=== PATIENT | male | born 1995 | race Caucasian/White ===

== ENCOUNTER 2020-02-28 09:53 | Day surgery (SDC) | payer OTHER ==
[~2020-02-28 09:53] MED LIST: Dexamethasone 4 MG/ML 5 ML MDV ONE; HYDROmorphone 1 MG/ML Syringe ONE; Ketorolac 30 MG/ML SDV ONE; Lactated Ringers 1,000 ML IV SCH; Lactated Ringers 1,000 ML ONE; Lidocaine 1% 6 ML ONE; Lidocaine 1%/Sod Bicarbonate in NS 8.4% 1 ML Syringe IDERM PRN; Midazolam 1 MG/ML 2 ML SDV ONE; Ondansetron 4 MG/2 ML SDV ONE; Propofol 200 MG/20 ML SDV ONE; Rocuronium 50 MG/5 ML Vial ONE; Sodium Chloride 0.9% 10 ML Syringe FLUSH PRN; Succinylcholine/Sod PF 100 MG/5 ML SYRINGE IV ONE; ceFAZolin 1 GM Vial ONE; fentaNYL 250 MCG/5 ML SDV ONE
[2020-02-28] MEDS ORDERED: Vancomycin 2 GM in Sodium Chloride 0.9% 500 ML IV ONE (10:00)
--- NOTE | 2020-02-28 11:05 | PCM.PREANE ---
Preanesthetic Assessment - Procedure Proposed Procedure: Left knee video arthroscopy and left knee deep hardware removal - Anesthesia/Transfusion/Family Hx Anesthesia History: Prior Anesthesia Without Reaction Family History of Anesthesia Reaction: No Transfusion History: No Prior Transfusion(s) - Review of Systems General: No Symptoms Pulmonary: No Symptoms Cardiovascular: No Symptoms Gastrointestinal: No Symptoms Neurological: No Symptoms Other: Reports: None - Physical Assessment NPO Status Date: 02/27/20 NPO Status Time: 20:30 Height: 1.8 m Weight: 136 kg ASA Class: 2 Mental Status: Alert & Oriented x3 Airway Class: Mallampati = 2 Dentition: Reports: Normal Dentition Thyro-Mental Finger Breadths: 3 Mouth Opening Finger Breadths: 2 ROM/Head Extension: Full Lungs: Clear to Auscultation, Normal Respiratory Effort Cardiovascular: Regular Rate, Regular Rhythm - Lab Values: Laboratory Last Values COVID-19 PCR Not detected (NOT DETECT) 02/26/20 15:00 MRSA (PCR) Positive H 02/08/20 12:59 - Allergies Allergies/Adverse Reactions: Allergies Allergy/AdvReac Type Severity Reaction Status Date / Time Penicillins Allergy Cannot Verified 02/27/20 15:35 Remember - Blood Blood Available: No Product(s) Available: None - Anesthesia Plan Pre-Op Medication Ordered: None - Acknowledgements Anesthesia Type Planned: General Anesthesia Pt an Appropriate Candidate for the Planned Anesthesia: Yes Alternatives and Risks of Anesthesia Discussed w Pt/Guardian: Yes Pt/Guardian Understands and Agrees with Anesthesia Plan: Yes PreAnesthesia Questionnaire HEENT History: Reports: None Cardiovascular History: Reports: None Respiratory History: Reports: None, Other (See Below) (Snors at night) Gastrointestinal History: Reports: None, GERD (not often "depends on what I eat") Genitourinary History: Reports: None DESIGN COORDINATOR History: Reports: None Neurological History: Reports: None Psychiatric History: Reports: None Endocrine/Metabolic History: Reports: None Hematologic History: Reports: None Immunologic History: Reports: None Oncologic (Cancer) History: Reports: None Dermatologic History: Reports: None - Past Surgical History HEENT Surgical History: Reports: None Cardiovascular Surgical History: Reports: None Respiratory Surgical History: Reports: None GI Surgical History: Reports: Appendectomy Female Surgical History: Reports: None Male Surgical History: Reports: None Endocrine Surgical History: Reports: None Neurological Surgical History: Reports: None Musculoskeletal Surgical History: Reports: Arthroscopic Knee Oncologic Surgical History: Reports: None Dermatological Surgical History: Reports: None - SUBSTANCE USE Smoking Status *Q: Never Smoker Tobacco Use Within Last Twelve Months: No Second Hand Smoke Exposure: No Days Per Week of Alcohol Use: 1 Number of Drinks Per Day: 1 Total Drinks Per Week: 1 Recreational Drug Use History: No - HOME MEDS Home Medications: Home Meds Acetaminophen/HYDROcodone [[place] 325-5 MG] 1 - 2 tab PO Q6H PRN #20 tablet 02/28/20 [Rx] Aspirin 325 mg PO BID #84 tab 02/28/20 [Rx] - CURRENT (IN HOUSE) MEDS Current Meds: Current Medications Epinephrine HCl (Adrenalin) 3 mg IV ONETIME ONE Stop: 02/28/20 13:01 Lactated Ringer's (Ringers, Lactated) 1,000 mls @ 125 mls/hr IV ASDIRECTED DECLAN Stop: 02/28/20 23:00 Vancomycin HCl 2 gm/ Sodium (Chloride) 500 mls @ 250 mls/hr IV ONETIME ONE Stop: 02/28/20 11:59 Lidocaine/Sodium Bicarbonate (Buffered Lidocaine 1% In Ns 8.4%) 0.25 ml IDERM ONETIME PRN PRN Reason: Prior to IV Start Stop: 02/28/20 18:00 Sodium Chloride (Saline Flush) 10 ml FLUSH ASDIRECTED PRN PRN Reason: Keep Vein Open Stop: 02/28/20 18:00 Discontinued Medications Cefazolin Sodium (Ancef) Confirm Administered Dose 3 gm .ROUTE .STK-MED ONE Stop: 02/28/20 06:22 Dexamethasone (Dexamethasone) Confirm Administered Dose 20 mg .ROUTE .STK-MED ONE Stop: 02/28/20 06:22 Fentanyl (Sublimaze) Confirm Administered Dose 250 mcg .ROUTE .STK-MED ONE Stop: 02/28/20 06:23 Hydromorphone HCl (Dilaudid) Confirm Administered Dose 1 mg .ROUTE .STK-MED ONE Stop: 02/28/20 06:22 Lidocaine HCl (Xylocaine-Mpf 1%) Confirm Administered Dose 6 mls @ as directed .ROUTE .STK-MED ONE Stop: 02/28/20 06:22 Lactated Ringer's (Ringers, Lactated) Confirm Administered Dose 1,000 mls @ as directed .ROUTE .STK-MED ONE Stop: 02/28/20 06:22 Ketorolac Tromethamine (Toradol) Confirm Administered Dose 30 mg .ROUTE .STK-MED ONE Stop: 02/28/20 06:22 Midazolam HCl (Versed 1 Mg/Ml) Confirm Administered Dose 2 mg .ROUTE .STK-MED ONE Stop: 02/28/20 06:23 Ondansetron HCl (Zofran) Confirm Administered Dose 4 mg .ROUTE .STK-MED ONE Stop: 02/28/20 06:22 Propofol (Diprivan 20 Ml) Confirm Administered Dose 400 mg .ROUTE .STK-MED ONE Stop: 02/28/20 06:23 Rocuronium [place] (Zemuron) Confirm Administered Dose 50 mg .ROUTE .STK-MED ONE Stop: 02/28/20 06:22 Vancomycin HCl (Pharmacy To Dose - Vancomycin) 1 dose .XX ONETIME ONE Stop: 02/28/20 07:54
[2020-02-28] MEDS ORDERED: Bupivacaine 0.25% 10 ML SDV ONE (12:04)
[2020-02-28] MEDS ORDERED: Succinylcholine/Sod PF 100 MG/5 ML SYRINGE IV ONE (12:28)
[2020-02-28] MEDS ORDERED: EPINEPHrine 1 MG/ML 30 ML MDV IV ONE (13:00)
[2020-02-28] MEDS ORDERED: ePHEDrine 50 MG/ML SDV IVPUSH PRN (13:28)
[2020-02-28] MEDS ORDERED: Ondansetron 4 MG/2 ML SDV IVPUSH PRN (13:28)
[2020-02-28] MEDS ORDERED: fentaNYL 100 MCG/2 ML SDV IVPUSH PRN (13:28)
[2020-02-28] MEDS ORDERED: diphenhydrAMINE 50 MG/ML SDV IVPUSH PRN (13:28)
[2020-02-28] MEDS ORDERED: HYDROmorphone 0.5 MG/0.5 ML Syringe IVPUSH PRN (13:28)
--- NOTE | 2020-02-28 13:28 | PCM.POSTAN ---
POST ANESTHESIA ASSESSMENT - MENTAL STATUS Mental Status: Alert - VITAL SIGNS Vital Signs: Last Vital Signs Temp 97.8 02/28/20 13:20 Pulse 84 02/28/20 13:20 Resp 18 02/28/20 13:20 BP 112/65 02/28/20 13:20 Pulse Ox 100% 02/28/20 13:20 - RESPIRATORY Respiratory Status: Respiratory Rate WNL, Airway Patent, O2 Saturation Stable, Supplemental Oxygen - CARDIOVASCULAR CV Status: Pulse Rate WNL, Blood Pressure Stable - GASTROINTESTINAL GI Status: No Symptoms - POST OP HYDRATION Hydration Status: Adequate & Stable
[2020-02-28] MEDS ORDERED: Phenylephrine 1 MG in Sodium Chloride 0.9% 10 ML IV PRN (13:30)
--- NOTE | 2020-02-28 14:01 | PCM48HPAN ---
Post Anesthesia Note - EVALUATION WITHIN 48HRS OF ANESTHETIC Vital Signs in Normal Range: Yes Patient Participated in Evaluation: Yes Respiratory Function Stable: Yes Airway Patent: Yes Cardiovascular Function Stable: Yes Hydration Status Stable: Yes Pain Control Satisfactory: Yes Nausea and Vomiting Control Satisfactory: Yes Mental Status Recovered: Yes Vital Signs: Last Vital Signs Temp 36.7 C 02/28/20 13:48 Pulse 88 02/28/20 13:48 Resp 17 02/28/20 13:48 BP 119/69 02/28/20 13:48 Pulse Ox 97 02/28/20 13:55
--- NOTE | 2020-03-06 08:25 | PCM.OPNOTE ---
- General Post-Op/Procedure Note Date of Surgery/Procedure: 02/28/20 Operative Procedure(s): left knee video arthroscopy with partial medial meniscectomy and left knee deep hardware removal Pre Op Diagnosis: left knee medial meniscus tear with painful hardware left tibia Post-Op Diagnosis: Same Anesthesia Technique: General LMA, Local Primary Surgeon: Curtis Bourgeois Anesthesia Provider: Patti Madison Last Repairer Helper: Aniya Martinez in mLs: 5 Complications: None Condition: Good
--- NOTE | 2020-03-06 09:17 | OR ---
DATE OF OPERATION: 02/28/2020 SURGEON: Curtis Bourgeois MD OPERATION PERFORMED: Left knee video arthroscopy with partial medial meniscectomy and left knee deep hardware removal. PREOPERATIVE DIAGNOSIS: Left knee medial meniscus tear with painful hardware, left tibia. POSTOPERATIVE DIAGNOSIS: Left knee medial meniscus tear with painful hardware, left tibia. ANESTHESIA: General LMA with local. ANESTHESIA PROVIDER: Patti Madison CRNA FLAME ANNEALING MACHINE SETTER: Aniya Martinez PA-C ESTIMATED BLOOD LOSS: Less than 5 mL. COMPLICATIONS: None. CONDITION: Stable. DESCRIPTION OF PROCEDURE: The patient was identified in the preoperative holding area. Proper site was marked and identified by the surgeon. The patient was taken back up to the operating theater, where after adequate anesthesia, the patient's right lower extremity was placed in a well leg vidal. Left lower extremity had a nonsterile tourniquet applied. It was then placed in a C-clamp vidal. Foot of the bed was then lowered. Left lower extremity was then sterilely prepped and draped in the usual sterile fashion. OR time-out was performed. The patient received 2 g IV Ancef. Left lower extremity was then exsanguinated. Tourniquet was insufflated to 250 mmHg. Standard anterolateral portal incision was made. Scope trocar was introduced. The patient was noted to have grade 1 chondromalacia of the patella as well as some synovitis. Attention was turned to the medial compartment. An anteromedial portal was created with the use of a spinal needle. The patient was noted to have degenerative tear of the posterior horn of the medial meniscus and a posterior medial meniscectomy was then performed roughly 25% of the medial meniscus back to a stable rim. ACL graft was intact in the notch. Lateral compartment showed no chondromalacic changes. The patient did have grade 1/2 chondromalacic changes of the medial femoral condyle. At this time, excess saline was drained from the knee and attention was turned to the prominent hardware of the tibia from the previous ACL reconstruction. Previous incision was utilized. This was taken down through the subcutaneous tissue and the bony tunnel was identified with the previous inner fixation method. At this time, a rongeur was used to remove all of the inner fixation material, plastic and metal out of the tibia. It was then curetted and rongeured and had good bony bleeding bed. Adequate saline was irrigated through all wounds. 2-0 Vicryl was used subcutaneously, and nylon was used for closure of the skin. The patient tolerated the procedure well and was sent to PACU in stable condition. HUGO /[id number]
== END 2020-02-28 15:25 | disposition home or self-care (01) ==
LOC: JD.SDS 09:53
PROVIDERS: ATTEND Orthopaedic Surgery
DX: S83.242A Other tear of medial meniscus, current injury, left knee, initial encounter (principal); T84.84XA Pain due to internal orthopedic prosthetic devices, implants and grafts, initial encounter; M22.42 Chondromalacia patellae, left knee; M65.862 Other synovitis and tenosynovitis, left lower leg; Z88.0 Allergy status to penicillin; Z11.59 Encounter for screening for other viral diseases; X58.XXXA Exposure to other specified factors, initial encounter
CPT/HCPCS: 20680; 29881; 87635; 87641; J0171; J0330; J0690; J1100; J1170; J1885; J2001; J2250; J2405; J2704; J3010; J3370; J3490; J7040; J7120; 01400; U0002